=== PATIENT | female | born 1990 | race Caucasian/White ===

== ENCOUNTER 2019-03-27 10:51 | Outpatient (CLI) | payer BC, SELFPAY ==
--- NOTE | 2019-03-27 10:38 | DI.RAD_ITS ---
SYMPTOMS/DIAGNOSIS: RT KNEE PAIN RIGHT KNEE: Joint space narrowing, articular sclerosis and regions which most likely represent bilateral osteochondritis desiccans are demonstrated. A cystic region involving the medial tibial plateau is also presumably on a degenerative basis. There is no evidence of a joint effusion and nothing to suggest a acute fracture or dislocation. SUMMARY: Severe DJD right knee.
== END 2019-03-27 11:11 ==
PROVIDERS: PCP Nurse Practitioner Family; Visit Provider Physician Assistant
DX: M25.561 Pain in right knee (principal); M17.11 Unilateral primary osteoarthritis, right knee
CPT/HCPCS: 73560

== ENCOUNTER 2019-04-08 00:49 | Outpatient (CLI) | payer BC, SELFPAY ==
[2019-04-08] MEDS: Gadoterate meglumine 20 ML VIAL 14 ML IVP (08:54)
[2019-04-08] MEDS: Normal Saline Flush 10 ML SYR IVP (08:55)
--- NOTE | 2019-04-08 09:30 | DI.MRI_ITS ---
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 Degenerative signal is seen in the posterior horn of the medial meniscus. The lateral meniscus is intact. There is mucoid degeneration seen in the anterior cruciate ligament. The posterior cruciate ligament, medial and lateral collateral ligaments, extensor mechanism and medial and lateral retinacula are intact as is the popliteus tendon. There is numerous masses seen throughout the joint spaces of the knee. These masses show diffuse low signal. There is a small joint effusion. There are erosive changes seen of the associated bone. Extensive cystic change is seen in the subchondral bone in the medial tibial plateau with mild loss of the subchondral bone. Cystic changes are also noted in the posterior aspect of the lateral femoral condyle and the patellofemoral joint. There is periosteal reaction of the bone on the distal femur due to the adjacent synovial masses. There is diffuse low T 1 signal throughout the bone marrow of the knee. IMPRESSION: 1. Low signal masses seen throughout the joint space of the knee, most suggestive of pigmented villonodular synovitis. Differential diagnosis includes nodular synovitis, gout, amyloid or hemophilic arthropathy. 2. Extensive subchondral cystic changes within the knee, particularly involving the medial tibial plateau with minimal collapse of the bone. 3. Diffuse marrow signal changes which can be seen with anemia, marrow hyperplasia, marrow stimulation, leukemia. Other etiologies cannot be excluded.
--- NOTE | 2019-04-08 17:06 | DI.VRAD_ITS ---
EXAM: MR Right Lower Extremity Without and With Contrast, Knee EXAM DATE/TIME: 04/08/2019 9:30 AM CLINICAL HISTORY: 28 years old, female; Prior surgery; Surgery date: 6+ months; Surgery type: Right knee surgery 9 years ago. ; Patient HX: Worsening condition, right knee swelling. No recent injury, PT sts cant straighten R knee. Surgery 9 years ago, constant right knee pain and swelling. ; Additional info: Tenosynovial giant cell tumor. Muscle spasms involuntary motion on axial images, no repeats. TECHNIQUE: Imaging protocol: MR of the Right Lower extremity without and with contrast. Exam focused on the knee. Contrast material: DOTAREM; Contrast volume: 14 ml; Contrast route: IV; COMPARISON: No relevant prior studies available. FINDINGS: Diffuse low signal synovial masses present throughout all recesses and compartments of the tibiofemoral and patellofemoral joints with associated bone erosions and small joint effusion is consistent with diffuse pigmented villonodular synovitis. Differential diagnosis includes nodular synovitis, gout, amyloid and hemophilic arthropathy. There is extensive subchondral cystic change within the medial tibial plateau with minimal subchondral bone collapse. There are cystic changes within the lateral tibiofemoral and patellofemoral joints. There is periosteal bone resorption of the distal femur from adjacent synovial masses. Secondary degenerative arthrosis throughout the tibiofemoral and patellofemoral joints is present. There is mucoid degeneration of the medial meniscus posterior horn. The lateral meniscus is intact. There is mucoid degeneration of the anterior cruciate ligament. The PCL, MCL, LCL, iliotibial band, biceps femoris tendon, popliteus tendon, extensor mechanism and patellar retinacula are intact. There is diffuse low T1 signal throughout the bone marrow of the knee. This may be seen with marrow hyperplasia, anemia, hematopoietic stimulation, polycythemia vera, leukemia and myelofibrosis. There are areas of fatty marrow in regions of subchondral cystic change. IMPRESSION: 1. Diffuse low signal synovial masses throughout the knee consistent with pigmented villonodular synovitis. 2. Extensive subchondral cystic changes with subchondral bone collapse of the medial tibial plateau. 3. Diffuse bone marrow signal changes which may be seen with marrow hyperplasia, anemia, hematopoietic, stimulation, polycythemia vera, leukemia, and myelofibrosis. Dictated and Authenticated by: Jose Carlos Infante MD. Ordering:KVNG Carmona MD
== END 2019-04-08 01:09 ==
PROVIDERS: PCP Nurse Practitioner Family; Visit Provider Nurse Practitioner Family
DX: M79.89 Other specified soft tissue disorders (principal); R93.6 Abnormal findings on diagnostic imaging of limbs
CPT/HCPCS: 73723

== ENCOUNTER 2022-10-20 09:54 | Emergency (ER) | payer BC, SELFPAY ==
[2022-10-20 10:04] VITALS: BP 133/87; PULSE 130; RESP 18; TEMP 37; O2SAT 98
[2022-10-20 10:52] LABS: Abs Immature Grans 0.05 10^3/uL (0.0-0.06); Absolute Basophil Count 0.03 10^3/uL (0.0-0.2); Absolute Eosinophil Count 0.07 10^3/uL (0.0-0.7); Absolute Lymphocyte Count 0.92 10^3/uL (1.2-3.4); Absolute Monocyte Count 0.69 10^3/uL (0.1-0.8); Absolute Neutrophil Count 8.11 10^3/uL (1.2-6.7); Basophils % 0.3; Eosinophils % 0.7; HCT 26.3 % (36.0-46.0); HGB 9.3 g/dL (11.2-15.7); Immature Grans % 0.5; Lymphocytes % 9.3; MCH 34.7 pg (27.0-33.0); MCHC 35.4 % (32.0-36.0); MCV 98 fL (80-95); MPV 12.1 fL (8.0-11.0); Neutrophils % 82.2; Platelet Count 121 10^3/uL (130-400); RBC 2.68 10^6/uL (3.93-5.22); RDW 16.6 % (11.7-14.6); WBC 9.87 10^3/uL (4.4-10.8)
[2022-10-20 10:53] LABS: COVID-19 PCR Negative (Negative); Influenza A PCR Negative (Negative); Influenza B PCR Negative (Negative); RSV PCR Negative (Negative)
[2022-10-20 10:54] LABS: Source Nasopharynx
[2022-10-20] MEDS: Lactated Ringers 1,000 ML 1000 ML IV (11:09)
[2022-10-20 11:10] LABS: ALT 11 U/L (14-59); AST 17 U/L (15-37); Albumin 3.5 g/dL (3.4-5.0); Alkaline Phosphatase 72 U/L (46-116); Anion Gap 9.7 mmol/L (3-11); BUN 8 mg/dL (7-18); Bilirubin, Total 2.8 mg/dL (0.2-1.0); CO2 25.3 mmol/L (21.0-32.0); CREATININE 0.5 mg/dL (0.55-1.02); Calcium 8.9 mg/dL (8.5-10.1); Chloride 100 mmol/L (98-107); Estimated GFR 129.32 (mL/min/1.73m2); Glucose 108 mg/dL (74-106); Potassium 3.6 mmol/L (3.5-5.1); Sodium 135 mmol/L (136-145); Total Protein 7.3 g/dL (6.4-8.2)
[2022-10-20] MEDS: predniSONE 20 MG TAB 40 MG PO (11:15)
[2022-10-20] MEDS: Albuterol HFA 8 GM 60 PUFF INH IH (11:15)
[2022-10-20 12:08] VITALS: RESP 16
[2022-10-20 12:14] VITALS: BP 129/60; PULSE 85; RESP 19; TEMP 36.6; O2SAT 100
[2022-10-20 12:18] LABS: Bilirubin Small (Negative); Blood Negative (Negative); Clarity Sl Cloudy (Clear); Glucose Negative (Negative); Ketones 15 mg/dL (Negative); Leukocyte Esterase Negative (Negative); Nitrite Positive (Negative); Urobilinogen >=8.0 EU/dL (Up TO 0.2); pH 7.5 (5-8)
[2022-10-20 12:31] LABS: Bacteria Moderate HPF (Negative); C & S Indicated? No/Sq. Contamination; Casts 0-2 Hyaline LPF (Negative); Crystals Negative HPF (Negative); Epithelial Cells Many HPF (Negative); Mucus Moderate (Negative); RBC Negative HPF (0-2); WBC 0-2 HPF (0-5)
--- NOTE | 2022-10-20 12:52 | ED.GENADUL_ITS ---
Discharge Plan Disposition Patient Disposition: Home Condition: Stable Discharge Details Clinical Impression: Upper respiratory infection, , Anemia, Elevated bilirubin Primary Care Provider: Kristine Anguiano ED Provider: Shirley Olson Home Meds and New Rx's Prescriptions: New prednisone 20 mg tablet 20 mg PO DAILY Qty: 2 0RF Continued iron 50 mg iron Tablet 65 tab PO DAILY [id number] 1 mg Tablet 1 tab PO DAILY Discharge Instructions Instructions: (ED), Iron Rich Diet (ED), Upper Respiratory Infection (ED), Anemia (ED) Additional Instructions: Take a second dose of prednisone tomorrow should he have persistent shortness of breath or cough Honey and lemon as needed for cough and sore throat Tylenol as needed for discomfort You may try taking dextromethorphan for cough as well You should have your bilirubin and CBC rechecked with your doctor or DRAWING TRACER within the next week or 2 Return earlier should you have new or worsening complaints including worsening shortness of breath, fever, chills, chest discomfort Referrals: Kristine Anguiano, PEDIATRIC RN [Primary Care Provider] - 1 day Discharge Data Discharge Date/Time-TO BE ENTERED AT DEPARTURE: 10/20/22 13:19 Medical Decision Making This otherwise healthy 32-year-old female who is 12 weeks presents with flulike symptoms Fluvid that was ordered which was negative Clear to auscultation Blood pressure is mildly elevated, patient will need this rechecked with her primary care physician and protein in urine, she has an appt next week with commercial intelligence manager heart rate was deferred as patient is 13 weeks and they have only been able to obtain with transvaginal ultrasound Denies any vaginal bleeding or abdominal tenderness Patient has a bronchospastic cough, she is given several labs and an inhaler for home Given a dose of prednisone in the emergency department and will give an additional dose for tomorrow as needed Will give dextromethorphan and Robitussin Recheck in 24 to 48 hours for reassessment Medical Records Medical records reviewed: Yes I reviewed the patient's medical records. Lab Data Lab results reviewed: Yes I reviewed the patient's lab results. HPI General Date/Time Provider Initiated Documentation: 10/20/22 10:04 . HPI Narrative: This 32-year-old female has otherwise reportedly healthy presents 13 weeks with a sore throat, myalgias, chills, cough, and hemoptysis. States that she was evaluated at urgent care in [place] and had negative COVID and flu on Sunday. She denies any chest discomfort. She denies any current shortness of breath. She does report laryngitis. She denies any known sick contacts. She has had an uneventful so far per patient. Patient has had nausea and vomiting which is per patient posttussive. Related Data Home Medications Medication Instructions Recorded Confirmed iron 50 mg iron tablet 65 tab PO DAILY 10/20/22 10/20/22 prednisone 20 mg tablet 20 mg PO DAILY #2 tabs 10/20/22 [id number] 1 mg 1 tab PO DAILY 10/20/22 10/20/22 tablet Previous Rx's Medication Instructions Recorded prednisone 20 mg tablet 20 mg PO DAILY #2 tabs 10/20/22 Allergies Allergy/AdvReac Type Severity Reaction Status Date / Time No Known Allergies Allergy Verified 10/20/22 10:08 General Stated Complaint: GenMedical HAILEY: 4 Review of Systems All systems reviewed & are unremarkable except as noted in HPI and below PFSH All Active Problems (Updated 10/20/22 @ 12:58 by DANITA Pedroza) Upper respiratory infection (Acute) (Acute) Anemia (Chronic) Elevated bilirubin (Acute) 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 Brother Hypertension Brother No problems noted. Maternal Grandfather Heart disease Hyperlipidemia Essential hypertension Non-Hodgkins lymphoma Myocardial infarction Type 2 diabetes mellitus Maternal Grandmother Lung cancer Paternal Grandfather Type 2 diabetes mellitus Paternal Grandmother No problems noted. Social History (Updated 04/13/21 @ 15:44 by Erica Olvera) Smoking/Tobacco Use Status: Never Second Hand Exposure: Yes Smoking risk assessment performed?: Yes Alcohol Intake: current Alcohol Intake frequency: a few times a month Alcohol type: wine and hard liquor Drug use: Never Substance use type: does not use Caregiver/Support person: No Household members: spouse Housing: house Communication Needs: None Do you need help understanding health information?: Never current occupation: DEVELOPMENT CONSULTANT Pets and animals: Yes Pets and animals: cat(s) Sexually active: Yes Do you think of yourself as: straight/heterosexual Current gender identity: female What is your relationship status?: living with partner How often do you talk on the phone with friends or family?: twice per week How often do you get together with friends or relatives?: twice per week How often do you attend judaism or scientologist services?: decline to answer Do you belong to any clubs or organized social groups?: no Panel score (0-1 are the most socially isolated patients): 2 What type of physical activity do you participate in: walking Duration: 60-90 minutes/day Frequency: 3-4 times per week Mesha/Voodoo: None Special mesha needs: No Seatbelt use: always Helmet use: Yes Helmet use: always Drive intox or ride w/intox refrigerated company driver: No Do you feel safe at home: Yes Do you feel safe in your relationship?: Yes History History 0 Para Hx # Term Pregnancies Multiple births Hx # Pregnancies Ectopic pregnancies AB induced Hx Number of Living Children AB spontaneous Exam Const General: cooperative, comfortable and no acute distress HENMT Head: normal to inspection Mouth: oral mucosae normal Eyes Sclera: sclerae normal Resp Effort & Inspection: normal respiratory effort Cardio Rate: regular rate GI Inspection: normal to inspection Other: Nontender abdominal exam Neuro General: patient alert and patient oriented x3 Extrem General: normal to inspection Course Vital Signs Vital signs: Vital Signs Temperature 37.0 C 10/20/22 10:04 Pulse 130 H 10/20/22 10:04 Respiratory Rate 18 10/20/22 10:04 Blood Pressure 133/87 10/20/22 10:04 Pulse Oximetry 98 10/20/22 10:04 Temperature 36.6 C 10/20/22 12:14 Temperature Source Skin 10/20/22 12:14 Pulse 85 10/20/22 12:14 Respiratory Rate 19 10/20/22 12:14 Respiratory Effort 10/20/22 12:08 Respiratory Depth Normal 10/20/22 12:08 Respiratory Pattern Normal 10/20/22 12:08 Blood Pressure 129/60 10/20/22 12:14 Blood Pressure Position Sitting 10/20/22 10:04 Pulse Oximetry 100 10/20/22 12:14 Oxygen Delivery Method Room Air 10/20/22 12:14 Oxygen Flow Rate 0 10/20/22 12:14 Pain Level 5 10/20/22 12:14 Lab/Test Results Lab/Test Results: Laboratory Tests Range/Units 10/20/22 10/20/22 10/20/22 10:10 10:42 10:42 WBC (4.4-10.8) 10^3/uL 9.87 RBC (3.93-5.22) 10^6/uL 2.68 L Hgb (11.2-15.7) g/dL 9.3 L Hct (36.0-46.0) % 26.3 L MCV (80-95) fL 98 H MCH (27.0-33.0) pg 34.7 H MCHC (32.0-36.0) % 35.4 RDW (11.7-14.6) % 16.6 H Plt Count (130-400) 10^3/uL 121 L MPV (8.0-11.0) fL 12.1 H Immature Gran % 0.5 Neutrophils % 82.2 Lymphocytes % 9.3 Monocytes % 7.0 Eosinophils % 0.7 Basophils % 0.3 Nucleated RBC % (0.0-0.3) % 0.0 Absolute Neutrophils (1.2-6.7) 10^3/uL 8.11 H Absolute Lymphocytes (1.2-3.4) 10^3/uL 0.92 L Absolute Monocytes (0.1-0.8) 10^3/uL 0.69 Absolute Eosinophils (0.0-0.7) 10^3/uL 0.07 Absolute Basophils (0.0-0.2) 10^3/uL 0.03 Sodium (136-145) mmol/L 135 L Potassium (3.5-5.1) mmol/L 3.6 Chloride (98-107) mmol/L 100 Carbon Dioxide (21.0-32.0) mmol/L 25.3 Anion Gap (3-11) mmol/L 9.7 BUN (7-18) mg/dL 8 Creatinine (0.55-1.02) mg/dL 0.5 L Est GFR (CKD-EPI 2020) (mL/min/1.73m2) 129.32 Glucose (74-106) mg/dL 108 H Calcium (8.5-10.1) mg/dL 8.9 Total Bilirubin (0.2-1.0) mg/dL 2.8 H AST (15-37) U/L 17 ALT (14-59) U/L 11 L Alkaline Phosphatase (46-116) U/L 72 Total Protein (6.4-8.2) g/dL 7.3 Albumin (3.4-5.0) g/dL 3.5 Urine Color (Yellow) Urine Clarity (Clear) Urine pH (5-8) Ur Specific [place] (1.005-1.025) Urine Protein (Negative) mg/dL Urine Ketones (Negative) mg/dL Urine Blood (Negative) Urine Nitrite (Negative) Urine Bilirubin (Negative) Urine Urobilinogen (Up TO 0.2) EU/dL Ur Leukocyte Esterase (Negative) Urine RBC (0-2) HPF Urine WBC (0-5) HPF Ur Epithelial Cells (Negative) HPF Urine Crystals (Negative) HPF Urine Bacteria (Negative) HPF Urine Casts (Negative) LPF Urine Mucus (Negative) Ur Culture Indicated? Urine Glucose (Negative) mg/dL COVID-19 Source Nasopharynx SARS-CoV-2 (PCR) (Negative) Negative Influenza Type A (PCR) (Negative) Negative Influenza Type B (PCR) (Negative) Negative RSV (PCR) (Negative) Negative Range/Units 10/20/22 12:08 WBC (4.4-10.8) 10^3/uL RBC (3.93-5.22) 10^6/uL Hgb (11.2-15.7) g/dL Hct (36.0-46.0) % MCV (80-95) fL MCH (27.0-33.0) pg MCHC (32.0-36.0) % RDW (11.7-14.6) % Plt Count (130-400) 10^3/uL MPV (8.0-11.0) fL Immature Gran % Neutrophils % Lymphocytes % Monocytes % Eosinophils % Basophils % Nucleated RBC % (0.0-0.3) % Absolute Neutrophils (1.2-6.7) 10^3/uL Absolute Lymphocytes (1.2-3.4) 10^3/uL Absolute Monocytes (0.1-0.8) 10^3/uL Absolute Eosinophils (0.0-0.7) 10^3/uL Absolute Basophils (0.0-0.2) 10^3/uL Sodium (136-145) mmol/L Potassium (3.5-5.1) mmol/L Chloride (98-107) mmol/L Carbon Dioxide (21.0-32.0) mmol/L Anion Gap (3-11) mmol/L BUN (7-18) mg/dL Creatinine (0.55-1.02) mg/dL Est GFR (CKD-EPI 2020) (mL/min/1.73m2) Glucose (74-106) mg/dL Calcium (8.5-10.1) mg/dL Total Bilirubin (0.2-1.0) mg/dL AST (15-37) U/L ALT (14-59) U/L Alkaline Phosphatase (46-116) U/L Total Protein (6.4-8.2) g/dL Albumin (3.4-5.0) g/dL Urine Color (Yellow) Dark Yellow Urine Clarity (Clear) Sl Cloudy Urine pH (5-8) 7.5 Ur Specific [place] (1.005-1.025) 1.020 Urine Protein (Negative) mg/dL 30 H Urine Ketones (Negative) mg/dL 15 H Urine Blood (Negative) Negative Urine Nitrite (Negative) Positive H Urine Bilirubin (Negative) Small H Urine Urobilinogen (Up TO 0.2) EU/dL >=8.0 Ur Leukocyte Esterase (Negative) Negative Urine RBC (0-2) HPF Negative Urine WBC (0-5) HPF 0-2 Ur Epithelial Cells (Negative) HPF Many Urine Crystals (Negative) HPF Negative Urine Bacteria (Negative) HPF Moderate Urine Casts (Negative) LPF 0-2 Hyaline Urine Mucus (Negative) Moderate Ur Culture Indicated? No/Sq. Contamination Urine Glucose (Negative) mg/dL Negative COVID-19 Source SARS-CoV-2 (PCR) (Negative) Influenza Type A (PCR) (Negative) Influenza Type B (PCR) (Negative) RSV (PCR) (Negative)
[2022-10-20 13:18] VITALS: BP 135/76; PULSE 94; RESP 16; TEMP 37; O2SAT 100
== END 2022-10-20 13:19 | disposition home or self-care (01) ==
PROVIDERS: Emergency Provider Physician Assistant; PCP Nurse Practitioner Family
DX: O99.511 Diseases of the respiratory system complicating pregnancy, first trimester (principal); J06.9 Acute upper respiratory infection, unspecified; O99.011 Anemia complicating pregnancy, first trimester; O99.281 Endocrine, nutritional and metabolic diseases complicating pregnancy, first trimester; E80.7 Disorder of bilirubin metabolism, unspecified; Z3A.12 12 weeks gestation of pregnancy; Z20.822 Contact with and (suspected) exposure to COVID-19
CPT/HCPCS: 36415; 80053; 87637; 94640; 96360; 99284; 81003; 81015; 85025; J7512